=== PATIENT | female | born 1940 | race Caucasian/White ===

== ENCOUNTER → 2017-09-01 | Day surgery (SDC) | payer OTHER ==
[~2017-09-01] VITALS: Ht 157.5 cm; Wt 97.1 kg
[~2017-09-01] MED LIST: ASPEC81 PO; BACITRACIN 50000 UNIT VIAL ONE; BUPIVACAINE 0.5 % 5 MG/1 ML MPF 30ML VIAL ONE; CEFAZOLIN 1000MG IV PUSH 7.5 ML IV SCH; CEFAZOLIN 2000MG IV PUSH 15 ML IV SCH; CRG625 PO; CYAN3INJ SQ; DIGO0.122 PO; FENO145T26 PO; FENTANYL CITRATE INJ 50 MCG/1 ML 2 ML VIAL ONE; GLC500 PO; INSUINJ12 SQ; LACTATED RINGER'S 1000ML 1,000 ML IV SCH; LIDOCAINE HCL 1% 20 ML VIAL ONE; LISI-725 PO; LRT5 PO; LSX20 PO; MIDAZOLAM HCL 5 MG/ML 1 ML VIAL ONE; MULT-506 PO; NVLGI/PEN SQ; OMEG10007 PO; PRED1SUS3 OPL; ROSU5TAB PO; SPIR25TA PO; SYMIN/8045 INH; VNTHFA/IN INH
[2017-09-01 06:33] VITALS: BP 158/65; PULSE 71; TEMP 36.7; O2SAT 93; Ht 157.5 cm; Wt 97.1 kg
--- NOTE | 2017-09-01 08:06 | History & Physical Bridge Note ---
H&P Re-Evaluation Bridge Note: I have examined the patient, reviewed the History & Physical and in the interval since the performance of the History & Physical I have noted the following changes of clinical significance: No changes noted
--- NOTE | 2017-09-01 08:07 | Pre Sedation Assessment ---
Pre Sedation Assessment General Date of Sedation: Sep 01, 2017. Vital Signs Past 12 Hours Date Time Temp Pulse Resp B/P (MAP) Pulse Ox O2 Delivery O2 Flow Rate FiO2 09/01/17 06:33 36.7 71 20 158/65 (96) 93 Room Air Review Cardiovascular: regular rate, rhythm Lungs: lungs clear Pre-Sedation Airway Assessment Smoking Status: Former Smoker Hx of Sleep Apnea: No Short Thick Neck: Yes Thyro-mental Distance: > 3 Finger Breadths Oral Cavity: Dentures Mallampati Classification: Class II ASA Classification: Class II NPO Status Date of Last Intake of Fluids: Aug 31, 2017 Time of Last Intake of Fluids: 2099 Date of Last Intake of Solids: Aug 31, 2017 Time of Last Intake of Solids: 2099 Procedure Planning Contraindications for Sedation: None Current Medications Reviewed: Yes Notes The planned sedation has been discussed with the patient. Informed Consent was obtained. I have identified the patient, determined the appropriateness of sedation and have assessed the patient immediately prior to the procedure. All medicine(s) and interventions are by my order.
--- NOTE | 2017-09-01 09:19 | Post Sedation Assessment ---
Post Sedation Assessment General Date of Sedation Sep 01, 2017. Vital Signs: Vital Signs Past 12 Hours Date Time Temp Pulse Resp B/P (MAP) Pulse Ox O2 Delivery O2 Flow Rate FiO2 09/01/17 09:10 69 16 135/77 (96) 95 Nasal Cannula 6 09/01/17 06:33 36.7 71 20 158/65 (96) 93 Room Air Post Procedure Recovery Score Activity: (2) Moves 4 extremities * Respiration: (2) Deep breath/cough Circulation: (2) +/-20% PreAnes Value Consciousness: (2) Fully Awake Oxygen Saturation: (1) O2 needed for >90% Post Anesthesia Score: 9 Discharge Sedation Level of Care: Fast Track Phase II Post Sedation Plan On clinical assessment, the patient appears to have tolerated the sedation without complications. Patient is recovering as anticipated. Patient will continue to be monitored by nursing and may be discharged when sedation discharge criteria are met per below protocol. Upon Completions of procedure and additional 15 minutes continue every 5 minute vital signs and the P.A.R. score; then discharge to a Phase I or Fast Track to Phase II per the following guidelines: * Discharge Patient to appropriate Phase II area if PAR is 8 or greater or return to pre- procedure baseline. The post - procedure orders will be as directed. * If PAR score is less than 8 or not return to pre-procedure baseline then patient will follow Phase I monitoring till PAR is reached for Phase II. The Phase I may be done in procedure room or may call to secure a Phase I area. * If naloxone or flumazenil are used for reversal, hold in Phase I for an additional 60 -120 minutes before discharge to Phase II. Please call the Sedation Physician to re-evaluate and complete post-note for discharge to Phase II area. Do NOT discharge from procedure sedation or Phase 1 until post- sedation evaluation note is complete by procedure /sedation MD Sedation Discharge Instructions to be given to the patient at discharge to home.
--- NOTE | 2017-09-01 09:19 | [facility] Post Operative Brief Note ---
Immediate Operative Summary Operative Date Sep 01, 2017. Pre-Operative Diagnosis biv icd at [place]rina, icm Post-Operative Diagnosis same Procedure(s) Performed biventricular rate responsive icd generator change Surgeon shavon chu Branch Account Manager Surgeon(s) none Estimated Blood Loss <5cc Findings See Below see offiicial report Fluids (cc crystalloids) 100cc Specimens none Drains None Anesthesia Type IV Sedat Cons RN Only Complication(s) none Disposition Accompanied Pt To Recover: yes Disposition: same day surgery
--- NOTE | 2017-09-01 09:20 | Discharge Instructions ---
Discharge Instructions Date of Service Sep 01, 2017. Visit Reason for Visit: Ischemic Cardiomyopathy, Elective Replacement Fannie Discharge Discharge Diagnosis / Problem: biv icd at [facility] and icm Discharge Goals Goal(s): Improve function Activity Recommendations Activity Limitations: as noted below Lifting Limitations: no more than 10 pounds (do not lift more than 10 pounds with the left arm for 2 weeks) May Resume Sexual Activity: after two weeks Shower/Bathe: tomorrow Driving or Machine Use: resume 1 day after discharge Anesthesia . Post Anesthesia Instructions: If you have had General Anesthesia or IV Sedation: * Do not drive today. * Resume driving when surgeon permits. * Do not make important decisions or sign legal documents today. * Call surgeon for: 1. Temperature elevations greater than 101 degrees F. 2. Uncontrollable pain. 3. Excessive bleeding. 4. Persistent nausea and vomiting. 5. Medication intolerance (nausea, vomiting or rash). * For nausea and vomiting use only clear liquids such as: tea, soda, bouillon until nausea subsides, then gradually increase diet as tolerated. * If you have any concerns or questions, call your surgeon's office. If physician is unavailable and it is an emergency, call 911 or go to the nearest emergency room. . Diet Recommendations Recommended Home Diet: resume previous diet Procedures Procedures Performed: biventricular rate responsive icd generator change Pending Studies Studies pending at discharge: no Medical Emergencies . Who to Call and When: Medical Emergencies: If at any time you feel your situation is an emergency, please call 911 immediately. . Non-Emergent Contact Non-Emergency issues call your: Engraved Roller Inspector . . "Provider Documentation" section prepared by Laila Hebert. .
[2017-09-01 09:29] VITALS: BP 120/61; PULSE 73; TEMP 37; O2SAT 91
[2017-09-01 09:48] VITALS: BP 128/65; PULSE 75; O2SAT 93
[2017-09-01 10:05] VITALS: BP 129/59; PULSE 73; TEMP 36.5; O2SAT 92
--- NOTE | 2017-09-01 13:35 | OPERATIVE REPORT ---
DATE OF OPERATION: 09/01/2017 PREOPERATIVE DIAGNOSES: Ischemic cardiomyopathy and biventricular implantable cardioverted defibrillator at elective replacement indicator. POSTOPERATIVE DIAGNOSES: Same. PROCEDURE: Biventricular implantable cardiac defibrillator generator change. SURGEON: Dr. Laila Hebert. FINANCE PROFESSOR: None. ANESTHESIA: Monitored conscious sedation administered by Dusty Chen under my supervision. Start time 08:30 and end time 09:10. A total of 4 mg of Versed and 100 mcg of fentanyl. INTRAVENOUS FLUIDS: 100 mL. ANTIBIOTICS: 2 grams of Ancef. ESTIMATED BLOOD LOSS: Less than 10 mL. COMPLICATIONS: None. CONDITION: Stable. URINE OUTPUT: Not applicable. SPECIMENS: None. GROSS FINDINGS: See below. DRAINS: None. INDICATIONS: This is a 76-year-old female with a past medical history of ischemic cardiomyopathy. She underwent a biventricular implantable cardiac defibrillator initially in 2006 with generator change in 2012. History of coronary artery disease, status post CABG, YATES to LAD, SANDRA off the LAD to the diagonal, SVG to PDA and this was done at [facility] in January 2007. Chronic systolic heart failure, [place] Heart Association class III. Hypertension, hyperlipidemia, diabetes, and chronic back pain. Due to the patient's biventricular ICD found to be at ANASTASIA, she was recommended a generator change. CONSENT: Consent was obtained prior to the patient going into the electrophysiology lab. The patient was informed of the risks, benefits, and alternatives to the procedure. Risks include, but not limited to sudden cardiac , cardiac arrhythmias, cerebrovascular accident, myocardial infarction, bleeding and infection. The patient understood these risks and agreed to proceed as planned. Informed consent was obtained. DESCRIPTION OF THE PROCEDURE: The patient was brought into the electrophysiology lab in fasting state. She was connected to continuous desk monitor. A timeout was performed to ensure the patient's identity and procedure correctly. The patient was prepped and draped over the left infraclavicular space in normal surgical standard fashion. Monitored conscious sedation was given throughout the procedure for the patient's comfort level under my supervision. [place] precautions were maintained throughout the procedure. A 10 mL of 1% lidocaine and bupivacaine mixture were given over the prior surgical incision. Incision was made over the prior surgical incision. Blunt dissection was performed down to the generator. The capsule was disrupted using iris scissors. The defibrillator was ultimately freed from the capsule and removed from the body. The leads were detached from the defibrillator and checked intraoperatively, see below for results. The capsule was disrupted inferiorly and caudally to allow for new blood flow. The pocket was then flushed with copious amounts of bacitracin saline wash and inspected for hemostasis. The new generator was then attached to the leads, making sure that the pins were in appropriate position, passed the set screws and the set screws were all tightened. An antibiotic Tyrx envelop watch was placed around the device and the device was placed in the pocket, making sure that the leads were lying flat beneath the device. The incision was then closed in 3-layer fashion using 2-0 Vicryl interrupted sutures followed by 3-0 Vicryl interrupted suture followed by a 4-0 Monocryl stitch and Dermabond was applied. EQUIPMENT: 1. Explanted generator is a [employer] [id number], serial #[id number], implanted on 01/31/2013. MASTER COOK voltage of 2.62 on 08/19/2017. 2. The new generator is a [employer] MRI YARD JOCKEY-D SureScan [id number], serial #[id number]. 3. Right atrial lead 5076-52 cm, serial #[id number], implanted on 06/07/2007. 4. Right ventricular lead, model #0185, serial #[id number], implanted on 06/07/2007. 5. Left ventricular lead, model #4542, serial #[id number], implanted on 06/07/2007. INTRAOPERATIVE TESTIN. Right atrial lead: P wave 5.4 millivolts, impedance 594 ohms, threshold 0.5 volts at 0.7 milliamps. 2. Right ventricular lead: R wave 8.6 millivolts, impedance 49 ohms, and threshold 1.2 volts at 2.9 milliamps. 3. Left ventricular lead: Programmed LV ring to RV coil, R wave 8.7 millivolts, impedance 592 ohms, and threshold 2.2 volts at 3.8 milliamps. FINAL MEASUREMENTS THROUGH THE DEVICE: 1. Right atrial lead: P wave 4 millivolts, impedance 475 ohms, and threshold 0.5 volts at 0.5 milliseconds. 2. Right ventricular lead: R waves 8.9 millivolts, impedance 342 ohms, and threshold 1.5 volts at 0.5 milliseconds. 3. Left ventricular lead: Programmed LV ring to RV coil, impedance 608 ohms and threshold 2.5 volts at 1 millisecond. RV coil is a 50 ohms and the SVC coil is 78 ohms. FINAL PARAMETERS: 1. DDD 50/120. Right atrial amplitude of 1 volt, pulse width 0.5 milliseconds, and sensitivity 0.3 millivolts 2. Right ventricular amplitude 3 volts. Pulse width 0.5 milliseconds and sensitivity 0.3 millivolts. 3. Left ventricular amplitude 3 volts, pulse width 1.0millisecond. VF zone at 207 beats per minute, 18 out of 24 detection intervals. VT zone at 171 beats per minute with 16 detection interval. IMPRESSION: Successful biventricular rate responsive implantable cardiac defibrillator generator change secondary to device at ANASTASIA and ischemic cardiomyopathy. PLAN: Monitor the patient post-sedation. She should not do any heavy lifting for 2 weeks with the left arm. She can shower tomorrow. Resume her prior diet and her home medications. She should follow up in our [place] office for device and wound check in 7-10 days. I attest to the content of the Intraoperative Record and any orders documented therein. Any exceptions are noted below. WANDA
== END ==
LOC: C.ACU 05:59
PROVIDERS: ATTEND Internal Medicine
DX: I25.5 Ischemic cardiomyopathy (principal); I25.10 Atherosclerotic heart disease of native coronary artery without angina pectoris; E11.9 Type 2 diabetes mellitus without complications; I10 Essential (primary) hypertension; I50.40 Unspecified combined systolic (congestive) and diastolic (congestive) heart failure; E78.5 Hyperlipidemia, unspecified; J44.9 Chronic obstructive pulmonary disease, unspecified; D69.6 Thrombocytopenia, unspecified; E53.9 Vitamin B deficiency, unspecified; E11.49 Type 2 diabetes mellitus with other diabetic neurological complication; Z95.1 Presence of aortocoronary bypass graft; Z95.810 Presence of automatic (implantable) cardiac defibrillator; Z79.82 Long term (current) use of aspirin; Z79.4 Long term (current) use of insulin; Z85.820 Personal history of malignant melanoma of skin; Z96.651 Presence of right artificial knee joint